=== PATIENT | female | born 1955 ===

== ENCOUNTER 2017-12-07 08:44 | Day surgery (SDC) | payer MEDICARE ==
[2016-11-28 13:06] VITALS: BMI 33.5
[2017-12-07] MEDS ORDERED: Propofol 10 mg/ml Inj (20 ML) ONE ×2 (11:02→11:20)
--- NOTE | 2017-12-07 11:02 | CP.SDSHP ---
Same Day Surgery H & P - History Proposed Procedure: COLONSCOPY Pre-Op Diagnosis: SEE NOTES - Previous Medical/Surgical History Cardiac: Hypertension Endocrine/Metabolic: Other Pain: 2.Mild Pain - Allergies Allergies: Allergies EGG Allergy (Verified 12/01/16 15:14) RASH Egg Derived Allergy (Verified 12/01/16 15:14) RASH verified with pt on this visit Penicillins Allergy (Verified 09/20/16 13:55) RASH - Physical Exam General Appearance: N Vital Signs: Vital Signs 12/07/17 09:00 Temperature .8 F L Pulse Rate 80 Respiratory 20 Rate Blood Pressure 126/76 O2 Sat by Pulse 97 Oximetry Mental Status: Alert & Oriented x3 Neuro: WNL Lungs: WNL GI: Other - {Optional Preform as Required} Breast: WNL Abdomen: Other Rectal: Other Integument: WNL : WNL Ortho: WNL ENT: WNL - Impression Pt. Evaluated Today:Candidate for Anesthesia & Procedure: Yes - Date & Time Time: 11:02 Short Stay Discharge - Short Stay Discharge Admitting Diagnosis/Reason for Visit: RECTAL BLEEDING Disposition: HOME/ ROUTINE
[2017-12-07] MEDS ORDERED: Lactated Ringer's 1,000 ML IV ONE ×2 (11:05)
[2017-12-07] MEDS ORDERED: Belladonna-Phenobarbital PO ONE (11:45)
[2017-12-07 12:28] VITALS: TEMP 97.8; O2SAT 100
[2017-12-07 12:44] VITALS: BP 130/75; PULSE 72; RESP 17
== END 2017-12-07 12:45 | disposition home or self-care (01) ==
LOC: C.ENDO 08:44
PROVIDERS: ATTEND Specialist
DX: K57.90 Diverticulosis of intestine, part unspecified, without perforation or abscess without bleeding (principal); K64.8 Other hemorrhoids; I10 Essential (primary) hypertension; Z88.0 Allergy status to penicillin; K52.9 Noninfective gastroenteritis and colitis, unspecified
CPT/HCPCS: 45380; 88305; J2704; J7120